=== PATIENT | female | born 1995 | race Caucasian/White ===

== ENCOUNTER 2017-05-20 21:55 | Emergency (ER) | payer MEDICAID ==
[~2017-05-20] VITALS: Ht 167.6 cm; Wt 62.0 kg
[2017-05-20 23:12] LABS: BASOPHILS % 0.4 % (0.0-2.0); EOSINOPHILS % 0.2 % (0.0-5.0); HEMATOCRIT. 34.3 % (36.0-48.0); HEMOGLOBIN. 11.6 g/dL (12.0-16.0); LYMPHOCYTES % 11.3 % (20.0-50.0); MEAN CORPUSCULAR HEMOGLOBIN 28.2 pg (28.0-32.0); MEAN CORPUSCULAR VOLUME 83.2 fL (81.0-99.0); MONOCYTES % 4.3 % (2.0-8.0); NEUTROPHILS % 83.8 % (40.0-76.0); PLATELET 659 x1000/uL (130-400); RED BLOOD CELL COUNT 4.12 mill/uL (4.2-5.4); RED CELL DISTRIBUTION WIDTH 13.6 % (11.6-14.6)
[2017-05-20 23:14] LABS: CHLORIDE 92 mEq/L (98-107)
[2017-05-20 23:16] LABS: INR 1.1; PROTHROMBIN TIME 11.5 sec (9.4-11.6)
[2017-05-20 23:24] LABS: BETA HYDROXYBUTYRATE 0.9 mMol/L (0.0-0.3)
[2017-05-20 23:29] LABS: CLARITY URINE CLEAR (CLEAR); COLOR URINE YELLOW (YELLOW); KETONES URINE 2+ (NEGATIVE); LEUKOCYTE ESTERASE URINE NEGATIVE (NEGATIVE); NITRITE URINE NEGATIVE (NEGATIVE); OCCULT BLOOD URINE 2+ (NEGATIVE); PH URINE 7.5 (4.5-8.0); PROTEIN URINE NEGATIVE (NEGATIVE); SPECIFIC GRAVITY URINE 1.047 (1.005-1.030); UROBILINOGEN URINE 0.2 E.U./dL (0.2-1.0)
[2017-05-21] MEDS ORDERED: PIPERACILLIN/TAZOBACTAM 3.375GM/50ML PREMIX IV ONE (00:15)
[2017-05-21] MEDS ORDERED: SODIUM CHLORIDE 0.9% 1000ML BAG (SEPSIS BOLUS) IV ONE (00:30)
[2017-05-21 04:43] VITALS: BP 109/65
== END 2017-05-21 05:12 | disposition home or self-care (01) ==
LOC: ER 22:51 → CANBEDREQ 05-21 07:52
DX: E11.65 Type 2 diabetes mellitus with hyperglycemia (principal); R11.2 Nausea with vomiting, unspecified; F12.10 Cannabis abuse, uncomplicated; Z79.4 Long term (current) use of insulin; Z91.14 Patient's other noncompliance with medication regimen
CPT/HCPCS: 36415; 71045; 74176; 76856; 80053; 81003; 81025; 82010; 82962; 83605; 83690; 85025; 85610; 87040; 93005; 96360; 96361; 99285; J7030; Z7610

== ENCOUNTER 2017-05-27 13:24 | Emergency (ER) | payer MEDICAID ==
[~2017-05-27] VITALS: Ht 165.1 cm; Wt 61.0 kg
[2017-05-27] MEDS ORDERED: SODIUM CHLORIDE 0.9% 1,000 ML IV ONE (14:14)
[2017-05-27 14:42] LABS: BASOPHILS % 0.8 % (0.0-2.0); EOSINOPHILS % 0.2 % (0.0-5.0); HEMATOCRIT. 32.3 % (36.0-48.0); LYMPHOCYTES % 24.6 % (20.0-50.0); MEAN CORPUSCULAR HEMOGLOBIN 28.2 pg (28.0-32.0); MEAN CORPUSCULAR VOLUME 82.6 fL (81.0-99.0); MONOCYTES % 7.4 % (2.0-8.0); PLATELET 647 x1000/uL (130-400); RED BLOOD CELL COUNT 3.91 mill/uL (4.2-5.4); RED CELL DISTRIBUTION WIDTH 13.7 % (11.6-14.6)
[2017-05-27 14:59] LABS: BETA HYDROXYBUTYRATE 0.2 mMol/L (0.0-0.3)
[2017-05-27 15:26] LABS: CHLORIDE 90 mEq/L (98-107)
[2017-05-27 16:58] VITALS: BP 109/63
== END 2017-05-27 17:12 | disposition home or self-care (01) ==
LOC: ER 13:34
DX: E11.65 Type 2 diabetes mellitus with hyperglycemia (principal); R10.9 Unspecified abdominal pain; F12.90 Cannabis use, unspecified, uncomplicated; Z79.4 Long term (current) use of insulin; Z91.19 Patient's noncompliance with other medical treatment and regimen
CPT/HCPCS: 36415; 80053; 82010; 82962; 83690; 85025; 93005; 96360; 99285; J7030; Z7610

== ENCOUNTER 2018-01-08 00:05 | Emergency (ER) | payer MEDICAID ==
[~2018-01-08] VITALS: Ht 165.1 cm; Wt 68.0 kg
[2018-01-08 02:39] LABS: CLARITY URINE CLEAR (CLEAR); COLOR URINE YELLOW (YELLOW); KETONES URINE NEGATIVE (NEGATIVE); LEUKOCYTE ESTERASE URINE 1+ (NEGATIVE); NITRITE URINE NEGATIVE (NEGATIVE); OCCULT BLOOD URINE NEGATIVE (NEGATIVE); PROTEIN URINE NEGATIVE (NEGATIVE); SPECIFIC GRAVITY URINE 1.026 (1.005-1.030); UROBILINOGEN URINE 0.2 E.U./dL (0.2-1.0)
[2018-01-08 02:42] LABS: CHLORIDE 102 mEq/L (98-107)
[2018-01-08 02:44] LABS: BASOPHILS % 0.3 % (0.0-2.0); EOSINOPHILS % 1.5 % (0.0-5.0); HEMATOCRIT. 35.3 % (36.0-48.0); HEMOGLOBIN. 11.8 g/dL (12.0-16.0); LYMPHOCYTES % 44.3 % (20.0-50.0); MEAN CORPUSCULAR HEMOGLOBIN 29.5 pg (28.0-32.0); MEAN PLATELET VOLUME 7.6 fl (7.4-10.4); MONOCYTES % 5.1 % (2.0-8.0); NEUTROPHILS % 48.8 % (40.0-76.0); PLATELET 346 x1000/uL (130-400); RED BLOOD CELL COUNT 4.01 mill/uL (4.2-5.4); RED CELL DISTRIBUTION WIDTH 13.4 % (11.6-14.6)
[2018-01-08 02:45] LABS: ETHANOL BLOOD < 10 mg/dL
[2018-01-08 02:49] LABS: HCG SCREEN NEGATIVE
[2018-01-08 03:13] LABS: *BARBITURATES SCREEN URINE NEGATIVE (NEGATIVE); *BENZODIAZEPINES SCREEN URINE NEGATIVE (NEGATIVE); OPIATES URINE SCREEN NEGATIVE (NEGATIVE); PHENCYCLIDINE URINE SCREEN NEGATIVE (NEGATIVE)
[2018-01-08 03:14] LABS: *COCAINE SCREEN URINE NEGATIVE (NEGATIVE); METHADONE URINE SCREEN NEGATIVE (NEGATIVE)
[2018-01-08 03:25] LABS: *AMPHETAMINES SCREEN URINE PRESUMTIVE POSITIVE (NEGATIVE); CANNABINOID URINE SCREEN PRESUMTIVE POSITIVE (NEGATIVE)
[2018-01-08] MEDS ORDERED: LORAZEPAM 1MG TABLET PO ONE (03:45)
[2018-01-08] MEDS ORDERED: NITROFURANTOIN 100MG M/M CAPSULE PO ONE (04:45)
[2018-01-08 13:15] VITALS: BP 108/70
== END 2018-01-08 13:19 | disposition home or self-care (01) ==
LOC: ER 00:05
DX: R45.851 Suicidal ideations (principal); N39.0 Urinary tract infection, site not specified; E86.0 Dehydration; F19.10 Other psychoactive substance abuse, uncomplicated; E11.9 Type 2 diabetes mellitus without complications; F17.200 Nicotine dependence, unspecified, uncomplicated; F12.10 Cannabis abuse, uncomplicated
CPT/HCPCS: 36415; 80053; 80305; 81003; 82962; 84703; 85025; 99284; G0482

== ENCOUNTER 2018-02-21 07:04 | Emergency (ER) | payer MEDICAID ==
[~2018-02-21] VITALS: Ht 162.6 cm; Wt 64.0 kg
[2018-02-21 08:27] LABS: BASOPHILS % 0.5 % (0.0-2.0); EOSINOPHILS % 0.2 % (0.0-5.0); HEMATOCRIT. 36.3 % (36.0-48.0); HEMOGLOBIN. 12.1 g/dL (12.0-16.0); LYMPHOCYTES % 26.2 % (20.0-50.0); MEAN CORPUSCULAR HEMOGLOBIN 29.4 pg (28.0-32.0); MEAN CORPUSCULAR VOLUME 87.7 fL (81.0-99.0); MEAN PLATELET VOLUME 7.5 fl (7.4-10.4); MONOCYTES % 5.2 % (2.0-8.0); NEUTROPHILS % 67.9 % (40.0-76.0); PLATELET 343 x1000/uL (130-400); RED BLOOD CELL COUNT 4.14 mill/uL (4.2-5.4); RED CELL DISTRIBUTION WIDTH 13.2 % (11.6-14.6)
[2018-02-21 08:38] LABS: ETHANOL BLOOD < 10 mg/dL
[2018-02-21 10:14] LABS: CHLORIDE 102 mEq/L (98-107)
[2018-02-21 10:26] LABS: CLARITY URINE CLEAR (CLEAR); COLOR URINE YELLOW (YELLOW); KETONES URINE NEGATIVE (NEGATIVE); LEUKOCYTE ESTERASE URINE NEGATIVE (NEGATIVE); NITRITE URINE NEGATIVE (NEGATIVE); OCCULT BLOOD URINE NEGATIVE (NEGATIVE); PH URINE 7.5 (4.5-8.0); PROTEIN URINE NEGATIVE (NEGATIVE); UROBILINOGEN URINE 0.2 E.U./dL (0.2-1.0)
[2018-02-21 11:14] LABS: *BARBITURATES SCREEN URINE NEGATIVE (NEGATIVE); *BENZODIAZEPINES SCREEN URINE NEGATIVE (NEGATIVE); *COCAINE SCREEN URINE NEGATIVE (NEGATIVE); METHADONE URINE SCREEN NEGATIVE (NEGATIVE)
[2018-02-21 11:15] LABS: CANNABINOID URINE SCREEN NEGATIVE (NEGATIVE); OPIATES URINE SCREEN NEGATIVE (NEGATIVE); PHENCYCLIDINE URINE SCREEN NEGATIVE (NEGATIVE)
[2018-02-21 11:29] LABS: *AMPHETAMINES SCREEN URINE PRESUMTIVE POSITIVE (NEGATIVE)
[2018-02-21] MEDS ORDERED: AZITHROMYCIN 500 MG TABLET PO ONE (12:45)
[2018-02-21] MEDS ORDERED: CEFTRIAXONE SODIUM 250 MG/VIAL IM ONE (12:45)
[2018-02-21 13:45] VITALS: BP 118/68
[2018-02-23 04:17] LABS: CHLAMYDIA TRACHOMATIS NAA Negative (Negative); NEISSERIA GONORRHOEAE NAA Negative (Negative)
== END 2018-02-21 14:05 | disposition home or self-care (01) ==
LOC: ER 07:04
DX: Z20.2 Contact with and (suspected) exposure to infections with a predominantly sexual mode of transmission (principal); E11.9 Type 2 diabetes mellitus without complications; R44.0 Auditory hallucinations; Z59.0 Homelessness
CPT/HCPCS: 36415; 80048; 80305; 80307; 80329; 81003; 85025; 87210; 87491; 87591; 96372; 99283; G0482; J0696

== ENCOUNTER 2018-07-20 17:12 | Emergency (ER) | payer MEDICAID ==
[~2018-07-20] VITALS: Ht 165.1 cm; Wt 63.0 kg
[2018-07-20] MEDS ORDERED: ACETAMINOPHEN 325MG TABLET PO STA (18:21)
[2018-07-20] MEDS ORDERED: KETOROLAC 30MG/ML VIAL IV STA (18:21)
[2018-07-20] MEDS ORDERED: SODIUM CHLORIDE 0.9% 1000ML BAG (SEPSIS BOLUS) IV ONE (18:30)
[2018-07-20 18:52] LABS: BASOPHILS % 0.7 % (0.0-2.0); CHLORIDE 99 mEq/L (98-107); EOSINOPHILS % 0.8 % (0.0-5.0); HEMATOCRIT. 37.2 % (36.0-48.0); HEMOGLOBIN. 12.5 g/dL (12.0-16.0); LYMPHOCYTES % 24.3 % (20.0-50.0); MEAN CORPUSCULAR HEMOGLOBIN 28.8 pg (28.0-32.0); MEAN CORPUSCULAR VOLUME 85.6 fL (81.0-99.0); MEAN PLATELET VOLUME 7.7 fl (7.4-10.4); MONOCYTES % 5.5 % (2.0-8.0); NEUTROPHILS % 68.7 % (40.0-76.0); PLATELET 365 x1000/uL (130-400); RED BLOOD CELL COUNT 4.35 mill/uL (4.2-5.4); RED CELL DISTRIBUTION WIDTH 13.9 % (11.6-14.6)
[2018-07-20 19:48] LABS: CLARITY URINE CLEAR (CLEAR); COLOR URINE YELLOW (YELLOW); KETONES URINE NEGATIVE (NEGATIVE); LEUKOCYTE ESTERASE URINE NEGATIVE (NEGATIVE); NITRITE URINE NEGATIVE (NEGATIVE); OCCULT BLOOD URINE NEGATIVE (NEGATIVE); PROTEIN URINE NEGATIVE (NEGATIVE); SPECIFIC GRAVITY URINE 1.039 (1.005-1.030); UROBILINOGEN URINE 0.2 E.U./dL (0.2-1.0)
[2018-07-20 21:38] VITALS: BP 104/52
== END 2018-07-20 21:38 | disposition home or self-care (01) ==
LOC: ER 17:24 → CANBEDREQ 21:31 → ER 21:38
DX: J06.9 Acute upper respiratory infection, unspecified (principal); E11.65 Type 2 diabetes mellitus with hyperglycemia; Z91.14 Patient's other noncompliance with medication regimen; R10.13 Epigastric pain; E88.09 Other disorders of plasma-protein metabolism, not elsewhere classified
CPT/HCPCS: 36415; 71045; 80053; 81003; 81025; 82962; 84145; 85025; 87070; 87086; 87430; 93005; 96361; 96374; 99284; J1885; J7030; Z7610

== ENCOUNTER 2018-10-11 08:29 | Emergency (ER) | payer MEDICAID ==
[~2018-10-11] VITALS: Ht 170.2 cm; Wt 73.0 kg
[2018-10-11 10:28] LABS: BASOPHILS % 0.4 % (0.0-2.0); EOSINOPHILS % 0.7 % (0.0-5.0); HEMATOCRIT. 36.1 % (36.0-48.0); HEMOGLOBIN. 12.1 g/dL (12.0-16.0); LYMPHOCYTES % 35.2 % (20.0-50.0); MEAN CORPUSCULAR HEMOGLOBIN 28.5 pg (28.0-32.0); MEAN CORPUSCULAR VOLUME 85.4 fL (81.0-99.0); MEAN PLATELET VOLUME 7.5 fl (7.4-10.4); MONOCYTES % 7.1 % (2.0-8.0); NEUTROPHILS % 56.6 % (40.0-76.0); PLATELET 323 x1000/uL (130-400); RED BLOOD CELL COUNT 4.23 mill/uL (4.2-5.4); RED CELL DISTRIBUTION WIDTH 13.6 % (11.6-14.6)
[2018-10-11 10:34] LABS: CHLORIDE 110 mEq/L (98-107)
[2018-10-11 10:37] LABS: ETHANOL BLOOD < 10 mg/dL
[2018-10-11] MEDS ORDERED: TETANUS, DIPHTHERIA, PERTUSSIS VAC/PF 0.5ML (>7YR OLD) IM ONE (12:15)
[2018-10-11 12:40] LABS: *BARBITURATES SCREEN URINE NEGATIVE (NEGATIVE)
[2018-10-11 12:41] LABS: *COCAINE SCREEN URINE NEGATIVE (NEGATIVE); METHADONE URINE SCREEN NEGATIVE (NEGATIVE); OPIATES URINE SCREEN NEGATIVE (NEGATIVE); PHENCYCLIDINE URINE SCREEN NEGATIVE (NEGATIVE)
[2018-10-11 12:50] LABS: *AMPHETAMINES SCREEN URINE PRESUMTIVE POSITIVE (NEGATIVE); *BENZODIAZEPINES SCREEN URINE PRESUMTIVE POSITIVE (NEGATIVE); CANNABINOID URINE SCREEN PRESUMTIVE POSITIVE (NEGATIVE)
[2018-10-11 12:58] LABS: CLARITY URINE CLEAR (CLEAR); COLOR URINE YELLOW (YELLOW); KETONES URINE NEGATIVE (NEGATIVE); LEUKOCYTE ESTERASE URINE NEGATIVE (NEGATIVE); NITRITE URINE NEGATIVE (NEGATIVE); OCCULT BLOOD URINE NEGATIVE (NEGATIVE); PROTEIN URINE NEGATIVE (NEGATIVE); SPECIFIC GRAVITY URINE 1.009 (1.005-1.030); UROBILINOGEN URINE 0.2 E.U./dL (0.2-1.0)
[2018-10-11 13:00] VITALS: BP 118/65
== END 2018-10-11 13:18 | disposition home or self-care (01) ==
LOC: ER 08:29
DX: F15.10 Other stimulant abuse, uncomplicated (principal); F20.9 Schizophrenia, unspecified; E11.9 Type 2 diabetes mellitus without complications; F31.9 Bipolar disorder, unspecified
CPT/HCPCS: 36415; 80305; 80320; 81003; 82962; 90471; 90715; 99283; G0480

== ENCOUNTER 2018-12-14 16:53 | Emergency (ER) | payer MEDICAID ==
[~2018-12-14] VITALS: Ht 165.1 cm; Wt 68.0 kg
[2018-12-14] MEDS ORDERED: INSULIN REGULAR (HUMULIN R) UD 100 UNITS/ML SYR IV ONE ×2 (19:15→23:15)
[2018-12-14] MEDS ORDERED: OLANZAPINE 5MG TABLET ODT PO ONE (19:15)
[2018-12-14] MEDS ORDERED: SODIUM CHLORIDE 0.9% 1,000 ML IV ONE ×2 (19:15→23:15)
[2018-12-14 19:23] LABS: BASOPHILS % 0.7 % (0.0-2.0); EOSINOPHILS % 0.7 % (0.0-5.0); HEMATOCRIT. 38.8 % (36.0-48.0); LYMPHOCYTES % 18.7 % (20.0-50.0); MEAN CORPUSCULAR HEMOGLOBIN 28.9 pg (28.0-32.0); MEAN CORPUSCULAR VOLUME 86.4 fL (81.0-99.0); MONOCYTES % 5.4 % (2.0-8.0); NEUTROPHILS % 74.5 % (40.0-76.0); PLATELET 354 x1000/uL (130-400); RED BLOOD CELL COUNT 4.49 mill/uL (4.2-5.4); RED CELL DISTRIBUTION WIDTH 13.5 % (11.6-14.6)
[2018-12-14 19:24] LABS: CHLORIDE 104 mEq/L (98-107)
[2018-12-14] MEDS ORDERED: INSULIN REGULAR (HUMULIN R) 300UNITS/3ML IV ONE (20:00)
[2018-12-14] MEDS ORDERED: INSULIN REGULAR (HUMULIN R) 300UNITS/3ML IV SCH ×2 (22:15→23:30)
[2018-12-15 00:45] VITALS: BP 106/61
== END 2018-12-15 00:51 | disposition home or self-care (01) ==
LOC: ER 16:53
DX: E11.65 Type 2 diabetes mellitus with hyperglycemia (principal); F20.9 Schizophrenia, unspecified; F15.10 Other stimulant abuse, uncomplicated; F31.9 Bipolar disorder, unspecified
CPT/HCPCS: 36415; 80048; 82962; 85025; 96361; 96374; 96376; 99283; J1815; J7030

== ENCOUNTER 2020-06-28 13:44 | Emergency (ER) | payer MEDICAID, OTHER ==
[~2020-06-28] VITALS: Ht 157.5 cm; Wt 55.0 kg
[2020-06-28 13:50] VITALS: BP 119/77
[2020-06-28] MEDS ORDERED: INSULIN REGULAR (HUMULIN R) 300UNITS/3ML VIAL IV ONE (14:15)
[2020-06-28] MEDS ORDERED: SODIUM CHLORIDE 0.9% 1,000 ML IV ONE (14:15)
[2020-06-28 14:40] LABS: CLARITY URINE CLEAR (CLEAR); COLOR URINE YELLOW (YELLOW); KETONES URINE NEGATIVE (NEGATIVE); LEUKOCYTE ESTERASE URINE NEGATIVE (NEGATIVE); NITRITE URINE NEGATIVE (NEGATIVE); OCCULT BLOOD URINE NEGATIVE (NEGATIVE); PROTEIN URINE NEGATIVE (NEGATIVE); SPECIFIC GRAVITY URINE 1.036 (1.005-1.030); UROBILINOGEN URINE 0.2 E.U./dL (0.2-1.0)
[2020-06-28 14:59] LABS: *BARBITURATES SCREEN URINE NEGATIVE (NEGATIVE); *BENZODIAZEPINES SCREEN URINE NEGATIVE (NEGATIVE); *COCAINE SCREEN URINE NEGATIVE (NEGATIVE); METHADONE URINE SCREEN NEGATIVE (NEGATIVE)
[2020-06-28 15:00] LABS: OPIATES URINE SCREEN NEGATIVE (NEGATIVE)
[2020-06-28 15:01] LABS: PHENCYCLIDINE URINE SCREEN NEGATIVE (NEGATIVE)
[2020-06-28 15:03] LABS: CANNABINOID URINE SCREEN NEGATIVE (NEGATIVE)
[2020-06-28 15:06] LABS: BASOPHILS % 0.4 % (0.0-2.0); HEMATOCRIT. 40.2 % (36.0-48.0); HEMOGLOBIN. 13.5 g/dL (12.0-16.0); LYMPHOCYTES % 28.3 % (20.0-50.0); MEAN CORPUSCULAR HEMOGLOBIN 29.3 pg (28.0-32.0); MEAN PLATELET VOLUME 7.8 fl (7.4-10.4); MONOCYTES % 7.8 % (2.0-8.0); NEUTROPHILS % 62.5 % (40.0-76.0); PLATELET 346 x1000/uL (130-400); RED BLOOD CELL COUNT 4.62 mill/uL (4.2-5.4); RED CELL DISTRIBUTION WIDTH 13.7 % (11.6-14.6)
[2020-06-28 15:09] LABS: *AMPHETAMINES SCREEN URINE PRESUMTIVE POSITIVE (NEGATIVE)
[2020-06-28 15:12] LABS: HCG SCREEN NEGATIVE
[2020-06-28 15:32] LABS: CHLORIDE 99 mEq/L (98-107)
== END 2020-06-28 16:17 | disposition left against medical advice (07) ==
LOC: ER 14:07
DX: E11.65 Type 2 diabetes mellitus with hyperglycemia (principal); F15.129 Other stimulant abuse with intoxication, unspecified; E86.0 Dehydration; F32.9 Major depressive disorder, single episode, unspecified; Z79.4 Long term (current) use of insulin
CPT/HCPCS: 36415; 80048; 80305; 80320; 81003; 81025; 82962; 84703; 85025; 96374; 99283; J1815; J7030; G0480

== ENCOUNTER 2021-07-25 16:45 | Emergency (ER) | payer MEDICAID, OTHER ==
[~2021-07-25] VITALS: Ht 170.2 cm; Wt 82.0 kg
[2021-07-25] MEDS ORDERED: ONDANSETRON HCL 4MG/2ML INJ IV STA (17:44)
[2021-07-25] MEDS ORDERED: SODIUM CHLORIDE 0.9% 1,000 ML IV ONE (17:45)
[2021-07-25 19:11] LABS: BASOPHILS % 0.4 % (0.0-2.0); CHLORIDE 101 mEq/L (98-107); EOSINOPHILS % 0.7 % (0.0-5.0); HEMATOCRIT. 36.5 % (36.0-48.0); LYMPHOCYTES % 35.6 % (20.0-50.0); MEAN CORPUSCULAR HEMOGLOBIN 28.4 pg (28.0-32.0); MEAN CORPUSCULAR VOLUME 86.6 fL (81.0-99.0); MEAN PLATELET VOLUME 7.8 fl (7.4-10.4); MONOCYTES % 6.2 % (2.0-8.0); NEUTROPHILS % 57.1 % (40.0-76.0); PLATELET 378 x1000/uL (130-400); RED BLOOD CELL COUNT 4.22 mill/uL (4.2-5.4); RED CELL DISTRIBUTION WIDTH 14.4 % (11.6-14.6)
[2021-07-25 19:21] LABS: HCG SCREEN NEGATIVE
[2021-07-25] MEDS ORDERED: INSULIN LISPRO 100 UNITS/ML SUBCUT NR (19:45)
[2021-07-25 19:50] VITALS: BP 138/92
== END 2021-07-25 19:51 | disposition home or self-care (01) ==
LOC: ER 16:45
DX: E11.65 Type 2 diabetes mellitus with hyperglycemia (principal); F20.9 Schizophrenia, unspecified; F31.9 Bipolar disorder, unspecified; F15.10 Other stimulant abuse, uncomplicated; Z79.84 Long term (current) use of oral hypoglycemic drugs
CPT/HCPCS: 36415; 80053; 83690; 84703; 85025; 96361; 96372; 96374; 99283; J1815; J2405; J7030